=== PATIENT | male | born 1950 | race Caucasian/White ===

== ENCOUNTER 2017-02-21 20:32 | Emergency (ER) | payer MEDICARE, OTHER ==
[2017-02-21] MEDS ORDERED: HYDROMORPHONE HCL 1 MG/ML CPJ IVP ONE (21:08)
[2017-02-21] MEDS ORDERED: PROMETHAZINE HCL 25 MG/ML VIAL IVP ONE (21:08)
[2017-02-21] MEDS ORDERED: METHYLPREDNISOLONE PF 125MG/VIAL IVP ONE (21:09)
[2017-02-21 21:29] LABS: BASO % 0.3 % (0-6); EOS % 5.3 % (0-6); HEMATOCRIT 42.3 % (42.0-52.0); HEMOGLOBIN 14.1 gm/dl (14.0-18.0); LYMPH % 13.9 % (16-45); MEAN CELL VOLUME 94.6 fl (81-97); MEAN CORPUSCULAR HEMOGLOBIN 31.5 pg (27-33); MEAN CORPUSCULAR HGB CONC 33.3 g/dl (32-36); MEAN PLATELET VOLUME 10.1 fl (7.4-10.4); MONO % 9.5 % (0-9); PLATELET COUNT 202 K/uL (130-400); RED BLOOD COUNT 4.47 M/uL (4.40-5.70); RED CELL DISTRIBUTION WIDTH 13.9 % (11.5-14.5); WHITE BLOOD COUNT W/O DIFF 10.1 K/uL (4.2-12.2)
--- NOTE | 2017-02-21 22:17 | Emergency Department Record ---
History of Present Illness - General Chief complaint: Lower Extremity Pain Stated complaint: LT LEG PAIN Time Seen by Provider: 02/21/17 20:58 Source: Patient Mode of Arrival: Ambulatory Limitations: No limitations - History of Present Illness Initial comments: pt c/o of severe l hip pain that is keeping him awake and is not relieved w norco. 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 the pain is worse then usual. he has hx of sciatica but had back surgery a few months ago which relieved that. he has no bowel or bladder problems. MD Complaint: Joint pain Onset/Timin -: Hour(s) Location: Left History of Same: Yes Radiation: Distal Severity scale (1-10): 10 Quality: Other Consistency: Constant Improves with: Nothing Worsens with: Nothing Associated Symptoms: Denies other symptoms - Related Data Home Medications Medication Instructions Recorded Confirmed Last Taken Aspirin Enteric-Coated [Ecotrin 81 mg PO DAILY 12/04/15 02/21/17 05/06/16 (EC)] Lisinopril [Zestril] 5 mg PO DAILY 12/04/15 02/21/17 05/06/16 Metoprolol Tartrate [Lopressor] 12.5 mg PO Q12H 12/04/15 02/21/17 05/06/16 Ranitidine HCl [Zantac] 150 mg PO BID 12/04/15 02/21/17 05/06/16 Simvastatin [Zocor] 20 mg PO QHS 05/06/16 02/21/17 05/05/16 Oxycodone HCl/Acetaminophen 1 each PO Q6H PRN 02/21/17 02/21/17 Unknown [Percocet 7.5mg/325mg] Allergies Allergy/AdvReac Type Severity Reaction Status Date / Time codeine AdvReac NAUSEA AND Verified 05/06/16 09:29 VOMITING fentanyl AdvReac VOMITING Verified 02/21/17 20:51 morphine AdvReac VOMITING Verified 02/21/17 20:51 sulfamethoxazole AdvReac VOMITING Verified 02/21/17 20:51 [From Bactrim] trimethoprim [From Bactrim] AdvReac VOMITING Verified 02/21/17 20:51 Travel Screening - Travel/Exposure Within Last 30 Days Have you traveled within the last 30 days?: No - Travel/Exposure Within Last Year Have you traveled outside the [place] in the last year?: No - Additonal Travel Details Have you been exposed to anyone with a communicable illness?: No - Travel Symptoms Symptom Screening: None Review of Systems Reviewed: No additional complaints except as noted below Constitutional: Reports: As per HPI. Denies: Chills, Fever, Malaise, Night sweats, Weakness, Weight change Eyes: Reports: As per HPI. Denies: Eye discharge, Eye pain, Photophobia, Vision change ENT: Reports: As per HPI. Denies: Congestion, Dental pain, Ear pain, Epistaxis , Hearing loss, Throat pain Respiratory: Reports: As per HPI. Denies: Cough, Dyspnea, Hemoptysis, Stridor, Wheezes Cardiovascular: Reports: As per HPI. Denies: Arrhythmia, Chest pain, Dyspnea on exertion, Edema, Murmurs, Orthopnea, Palpitations, Paroxysmal nocturnal dyspnea, Rheumatic Fever, Syncope Endocrine: Reports: As per HPI. Denies: Fatigue, Heat or cold intolerance, Polydipsia, Polyuria Gastrointestinal: Reports: As per HPI. Denies: Abdominal pain, Constipation, Diarrhea, Hematemesis, Hematochezia, Melena, Nausea, Vomiting Genitourinary: Reports: As per HPI. Denies: Dysuria, Frequency, Hematuria, Incontinence, Retention, Testicular pain, Testicular mass, Urgency Musculoskeletal: Reports: As per HPI. Denies: Arthralgia, Back pain, Gout, Joint swelling, Myalgia, Neck pain Skin: Reports: As per HPI. Denies: Bruising, Change in color, Change in hair/ nails, Lesions, Pruritus, Rash Neurological: Reports: As per HPI. Denies: Abnormal gait, Confusion, Headache, Numbness, Paresthesias, Seizure, Tingling, Tremors, Vertigo, Weakness Psychiatric: Reports: As per HPI. Denies: Anxiety, Auditory hallucinations, Depression, Homicidal thoughts, Suicidal thoughts, Visual hallucinations Hematological/Lymphatic: Reports: As per HPI. 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) - NEURO Hx Neuro Disorders: Yes Hx Neuropathy: Yes (Polymyalgia rhumatica) - GI Hx GI Disorders: No - Hx Genitourinary Disorders: No - ENDOCRINE Hx Endocrine Disorders: No - MUSCULOSKELETAL Hx Musculoskeletal Disorders: Yes - PSYCH Hx Psych Problems: No - HEMATOLOGY/ONCOLOGY Hx Hematology/Oncology Disorders: No Family Medical History Any Significant Family History?: Yes Hx Cancer: Father Hx Heart Disease: Father Physical Exam - General General Appearance: Alert, Oriented x3, Cooperative, Mild distress - Head Head exam: Normal inspection - Eye Eye exam: Normal appearance, PERRL, EOMI Pupils: Normal accommodation - ENT ENT exam: Normal exam, Mucous membranes moist, Normal external ear exam, Normal orophraynx Ear exam: Normal external inspection. negative: External canal tenderness Nasal Exam: Normal inspection. negative: Discharge, Sinus tenderness Mouth exam: Normal external inspection, Tongue normal Teeth exam: Normal inspection. negative: Dental caries Throat exam: Normal inspection. negative: Tonsillar erythema, Tonsillar exudate - Neck Neck exam: Normal inspection, Full ROM. negative: Tenderness - Respiratory Respiratory exam: Normal lung sounds bilaterally. negative: Respiratory distress - Cardiovascular Cardiovascular Exam: Regular rate, Normal rhythm, Normal heart sounds - GI/Abdominal GI/Abdominal exam: Soft, Normal bowel sounds. negative: Tenderness - Rectal Rectal exam: Deferred - exam: Deferred - Extremities Extremities exam: Full ROM, Normal capillary refill, Tenderness (over l hip) - Back Back exam: Reports: Normal inspection, Full ROM. Denies: Muscle spasm, Rash noted, Tenderness - Neurological Neurological exam: Alert, CN II-XII intact, Normal gait, Oriented X3 - Psychiatric Psychiatric exam: Normal affect, Normal mood - Skin Skin exam: Dry, Intact, Normal color, Warm Course Vital Signs 02/21/17 02/21/17 02/21/17 20:39 21:08 21:51 Temperature 98.8 F Pulse Rate 83 Pulse Rate [ 81 Pulse Ox Probe] Respiratory 22 18 Rate Blood Pressure 126/62 Blood Pressure 95/54 [Left Arm] Pulse Ox 92 L 91 L - Reevaluation(s) Reevaluation #1: 02/21/17 22:16 pt feels much better. xr show djd Medical Decision Making - Lab Data Result diagrams: 02/21/17 21:10 Lab Results 02/21/17 Range/Units 21:10 WBC 10.1 (4.2-12.2) K/uL RBC 4.47 (4.40-5.70) M/uL Hgb 14.1 (14.0-18.0) gm/dl Hct 42.3 (42.0-52.0) % MCV 94.6 (81-97) fl MCH 31.5 (27-33) pg MCHC 33.3 (32-36) g/dl RDW 13.9 (11.5-14.5) % Plt Count 202 (130-400) K/uL MPV 10.1 (7.4-10.4) fl Gran % 71.0 (47-80) % Lymphocytes % 13.9 L (16-45) % Monocytes % 9.5 H (0-9) % Eosinophils % 5.3 (0-6) % Basophils % 0.3 (0-6) % Disposition Disposition: Discharge Clinical Impression: Hip pain Qualifiers: Laterality: left Qualified Code(s): M25.552 - Pain in left hip Disposition: Home, Self-Care Condition: (1) Good Instructions: Hip Pain (ED), Arthralgia (ED) Additional Instructions: follow up with family doctor and orthopedic surgeon. return sooner if worse Forms: Patient Portal Access Quality - Quality Measures Quality Measures: N/A - Blood Pressure Screening Blood Pressure Classification: Pre-Hypertensive BP Reading Systolic Measurement: 126 Diastolic Measurement: 62 Screening for High Blood Pressure: < Normal BP, F/U Not Required > [G8783] Normal BP Follow-up Interventions: No follow-up required
[2017-02-21 22:50] LABS: ERYTHROCYTE SEDIMENTATION RATE 37 mm/hr (0-20)
--- NOTE | 2017-02-23 15:14 | RADIOLOGY REPORT ---
EXAM: LEFT HIP WITH PELVIS HISTORY: LEFT LATERAL AND PROXIMAL HIP PAIN. NO KNOWN INJURY. TECHNIQUE: An AP view of the pelvis and AP and lateral views of the left hip were obtained. Comparison: None. Encounter: Not applicable. FINDINGS: There is moderate narrowing of the left hip joint space. There is mild associated articular sclerosis, subchondral cyst formation, and marginal osteophyte formation. There is no visible acute fracture or dislocation. The bony pelvis appears intact. Post surgical changes are present within the L4-L5 level consistent with interbody and posterior fusion. The right hip appears normal. IMPRESSION: 1. MODERATE ARTHRITIC CHANGES OF THE LEFT HIP. 2. NO ACUTE HIP OR PELVIC PATHOLOGY. JOB NUMBER: [id number] MTDD
== END 2017-02-21 22:29 | disposition home or self-care (01) ==
LOC: ER 20:32
DX: M25.552 Pain in left hip (principal)
CPT/HCPCS: 99284 ×2; 96374; 96375; 85025; 85651; 73502; J1170; J2550; J2930